=== PATIENT | female | born 1985 ===

== ENCOUNTER 2020-07-26 15:55 | Outpatient (CLI) | payer OTHER | END 2020-07-26 16:15 | disposition home or self-care (01) | LOC: LAB 15:55 | PROVIDERS: ATTEND Obstetrics & Gynecology Maternal & Fetal Medicine | DX: Z34.82 Encounter for supervision of other normal pregnancy, second trimester (principal) ==

== ENCOUNTER → 2020-07-26 | Outpatient (CLI) | payer OTHER ==
[~2020-07-26] MED LIST: ADVAIR 100-501 EACH; SINGULAIR10 MG
== END | disposition home or self-care (01) ==
LOC: PRENATAL 14:00
PROVIDERS: ATTEND Obstetrics & Gynecology Maternal & Fetal Medicine
DX: O28.1 Abnormal biochemical finding on antenatal screening of mother (principal); O09.512 Supervision of elderly primigravida, second trimester; Z36.89 Encounter for other specified antenatal screening; Z3A.19 19 weeks gestation of pregnancy